=== PATIENT | female | born 1955 | race Caucasian/White ===

== ENCOUNTER 2024-02-09 13:47 | Emergency (ER) | payer OTHER, BC ==
[2024-02-09 14:21] VITALS: BP 131/83; PULSE 76; RESP 20; TEMP 98.2; BMI 20.5
== END 2024-02-09 14:36 | disposition home or self-care (01) ==
LOC: FER 13:47
PROC: 0HQNXZZ Repair Left Foot Skin, External Approach (ICD-10-PCS; principal; 2024-02-09)
DX: S91.115A Laceration without foreign body of left lesser toe(s) without damage to nail, initial encounter (principal); W26.0XXA Contact with knife, initial encounter
CPT/HCPCS: 99282-25